=== PATIENT | female | born 1935 | race Caucasian/White ===

== ENCOUNTER 2019-10-27 16:20 | Emergency (ER) | payer MEDICARE, MEDICAID ==
[2019-10-27 18:22] LABS: ABSOLUTE LYMPHOCYTES (AUTO) 1.1 10^3/uL (0.5-4.7); ABSOLUTE MONOCYTES (AUTO) 0.6 10^3/uL (0.1-1.4); BASOPHILS % (AUTO) 0.3 % (0-2); EOSINOPHILS % (AUTO) 0.5 % (0-6); HEMATOCRIT 38.1 % (36.0-47.0); LYMPHOCYTES % (AUTO) 16.5 % (13-45); MEAN CORPUSCULAR HEMOGLOBIN 32.1 pg (27.0-33.4); MEAN CORPUSCULAR VOLUME 94 fl (80-97); MONOCYTES % (AUTO) 8.7 % (3-13); PLATELET COUNT 355 10^3/uL (150-450); RED BLOOD COUNT 4.04 10^6/uL (3.72-5.28); RED CELL DISTRIBUTION WIDTH 14.2 % (11.5-14.0); TOTAL CELLS COUNTED % (AUTO) 100 %; WHITE BLOOD COUNT 6.8 10^3/uL (4.0-10.5)
[2019-10-27 18:43] LABS: ALBUMIN 4.5 g/dL (3.5-5.0); ALKALINE PHOSPHATASE 98 U/L (38-126); ANION GAP 14 (5-19); ASPARTATE AMINO TRANSFERASE 19 U/L (14-36); BLOOD UREA NITROGEN 24 mg/dL (7-20); CALCIUM 9.9 mg/dL (8.4-10.2); CARBON DIOXIDE 28 mmol/L (22-30); CHLORIDE 93 mmol/L (98-107); GLUCOSE 130 mg/dL (75-110); POTASSIUM 3.9 mmol/L (3.6-5.0); TOTAL PROTEIN 7.2 g/dL (6.3-8.2)
[2019-10-27] MEDS ORDERED: NORMAL SALINE 1000 ML 1,000 ML IV ONE (20:05)
--- NOTE | 2019-10-27 20:08 | ER Document Report ---
ED General - General Chief Complaint: Vomiting Stated Complaint: VOMITING Time Seen by Provider: 10/27/19 19:06 Primary Care Provider: JOHAN HESTER PA-C [Primary Care Provider] - Follow up as needed Mode of Arrival: Wheelchair Information source: Patient, Relative - Son Notes: Patient is a 84-year-old female presenting to the emergency department chief complaint of weight loss, generalized weakness and vomiting that began 4 days ago. Patient denies any diarrhea, fever or chills. 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 Apparently this causes patient to have GI distress. He states she is now not had medication at least 24 hours so he thinks that she is feeling better. Last time she vomited was at 3:00 this afternoon. They deny any blood in the vomit or stool. - Related Data Allergies/Adverse Reactions: No Known Allergies Allergy (Verified 10/27/19 17:30) Home Medications: alzheimers Past Medical History - General Information source: Patient, Relative - Son - Social History Smoking Status: Never Smoker Chew tobacco use (# tins/day): No Frequency of alcohol use: None Drug Abuse: None Family History: Reviewed & Not Pertinent Patient has homicidal ideation: No - Medical History Medical History: Negative Surgical Hx: Negative - Immunizations Immunizations up to date: Yes Review of Systems - Review of Systems Constitutional: Weight loss - 10 pound in 1 week EENT: No symptoms reported Cardiovascular: No symptoms reported Respiratory: No symptoms reported Gastrointestinal: Nausea, Vomiting Genitourinary: No symptoms reported Female Genitourinary: No symptoms reported Musculoskeletal: No symptoms reported Skin: No symptoms reported Hematologic/Lymphatic: No symptoms reported Neurological/Psychological: No symptoms reported Physical Exam - Vital signs Vitals: Temp Pulse BP Pulse Ox 98.1 F 68 104/64 97 10/27/19 17:25 10/27/19 17:25 10/27/19 17:25 10/27/19 17:25 - Notes Notes: PHYSICAL EXAMINATION: GENERAL: Well-appearing, well-nourished and in no acute distress. HEAD: Atraumatic, normocephalic. EYES: Pupils equal round and reactive to light, extraocular movements intact, conjunctiva are normal. ENT: Nares patent, oropharynx clear without exudates. Moist mucous membranes. NECK: Normal range of motion, supple without lymphadenopathy LUNGS: Breath sounds clear to auscultation bilaterally and equal. No wheezes rales or rhonchi. HEART: Regular rate and rhythm without murmurs ABDOMEN: Soft, nontender, mildly distended abdomen. No guarding, no rebound. No masses appreciated. Female : deferred Musculoskeletal: Normal range of motion, no pitting or edema. No cyanosis. NEUROLOGICAL: Cranial nerves grossly intact. Normal speech. Normal sensory, motor exams PSYCH: Normal mood, normal affect. SKIN: Warm, Dry, normal turgor, no rashes or lesions noted. Course - Re-evaluation Re-evalutation: 10/27/19 20:21 Patient appears well, nontoxic. Patient reports she feels fine. Her son is at the bedside states she has mild dementia. Patient's son thinks her vomiting was secondary to taking 2 doses per day of her 10/27/19 21:13 Nursing staff made aware of need for urinalysis, straight cath if needed. CBC and CMP are unremarkable. KUB with no acute findings. Suspect we can disposition the patient. The rest of patient's work-up was reassuring. No evidence of UTI. Patient does report she feels better after administration of IV fluids here in the emergency department. She will be discharged home at this time, she will have close follow-up with her primary care provider, son is in agreement with plan. - Vital Signs Vital signs: Temp Pulse Resp BP Pulse Ox 97.8 F 94 20 144/82 H 93 10/27/19 23:40 10/27/19 23:40 10/27/19 23:40 10/27/19 23:40 10/27/19 23:40 - Laboratory Result Diagrams: 10/27/19 17:45 10/27/19 17:45 Laboratory results interpreted by me: 10/27/19 10/27/19 10/27/19 17:45 17:45 21:35 RDW 14.2 H Sodium 134.6 L Chloride 93 L BUN 24 H Est GFR ( Amer) 54 L Est GFR (MDRD) Non-Af 45 L Glucose 130 H Urine Protein 30 H Urine Ketones TRACE H Discharge - Discharge Clinical Impression: Side effect of medication Nausea and vomiting Qualifiers: Vomiting type: unspecified Vomiting Intractability: non-intractable Qualified Code(s): R11.2 - Nausea with vomiting, unspecified Condition: Stable Disposition: HOME, SELF-CARE Additional Instructions: Your work-up today was reassuring. A copy of your lab work and x-ray has been provided to you in this discharge packet. Please bring this to your primary care provider for her review. Take the Zofran as needed for nausea or vomiting. There are 6 tablets in the take-home pack. You may take 1 tablet every 4-6 hours as needed for nausea. Return to the emergency department if you continue to have persistent vomiting, develop abdominal pain, fever or any other concerning symptom. We are happy to reevaluate you at any time. Referrals: JOHAN HESTER PA-C [Primary Care Provider] - Follow up as needed
--- NOTE | 2019-10-27 21:14 | RADIOLOGY REPORT (SQ) ---
EXAM DESCRIPTION: XR ABDOMEN 1 VIEW (KUB) COMPLETED DATE/TME: 10/27/2019 20:20 CLINICAL HISTORY: 84 years, Female, abdominal distention COMPARISON: None. FINDINGS: Nonobstructive bowel gas pattern. No abnormal calcifications. No acute osseous abnormality. IMPRESSION: No acute abnormality.
[2019-10-27 22:14] LABS: AMORPHOUS SEDIMENT,URINE TRACE /HPF; APPEARANCE,URINE SLIGHTLY-CLOUDY; BILIRUBIN,URINE NEGATIVE (NEGATIVE); COLOR,URINE YELLOW; GLUCOSE, URINE NEGATIVE (NEGATIVE); KETONES,URINE TRACE mg/dL (NEGATIVE); LEUKOCYTE ESTERASE,URINE NEGATIVE (NEGATIVE); NITRITE,URINE NEGATIVE (NEGATIVE); PROTEIN,URINE 30 mg/dL (NEGATIVE); URINE SPECIFIC GRAVITY 1.019; UROBILINOGEN,URINE NEGATIVE mg/dL (<2.0)
[2019-10-27] MEDS ORDERED: ONDANSETRON ODT 4 MG TAB (6 TAB/ER DISP) PO PRN (23:10)
[2019-10-28 00:01] VITALS: BP 144/82
== END 2019-10-27 23:40 | disposition home or self-care (01) ==
LOC: ER 16:20
DX: T44.1X1A Poisoning by other parasympathomimetics [cholinergics], accidental (unintentional), initial encounter (principal); R11.2 Nausea with vomiting, unspecified; R53.1 Weakness; G30.9 Alzheimer's disease, unspecified; F02.80 Dementia in other diseases classified elsewhere, unspecified severity, without behavioral disturbance, psychotic disturbance, mood disturbance, and anxiety; Y92.9 Unspecified place or not applicable
CPT/HCPCS: 99284; 96360; 96361; 36415; 85025; 80053; 81001; 74018; J7030; A9270